=== PATIENT | female | born 1955 | race Caucasian/White ===

== ENCOUNTER 2017-09-22 15:19 | Outpatient (CLI) | payer OTHER ==
--- NOTE | 2017-09-22 19:15 | MRI ---
BRAIN MRI WITH AND WITHOUT CONTRAST: HISTORY: Diagnosed with multiple sclerosis six years ago. Worsening symptoms. COMPARISON: None. TECHNIQUE: A brain MRI is performed with and without intravenous Gadolinium administration. Multisequential, mu ltiplanar imaging is performed. FINDINGS: No hemorrhage on the axial gradient echo sequence. No parenchymal mass, mass effect, or midline shift. Brain volume is age appropriate. Cortical smith white matter differentiation is preserved. Ventricles and sulci are patent and symmetric. The calvarium has a normal T1 marrow signal intensity. Midline brain parenchymal structures are unre markable. Central arterial flow voids are maintained. Absent restricted diffusion. There are scattered T2 and FLAIR white matter hyperintensities. Some of these white matter hyperinte nsities have an orientation perpendicular to the ventricular system. The possibility of demyelinatin g plaques is raised. There is no associated restricted diffusion or enhancement to suggest active de myelination. There is mucosal disease of the left maxillary sinus. No pathologic enhancement of the brain parenchyma. IMPRESSION: 1. No pathologic enhancement of the brain parenchyma. 2. T2 and FLAIR white matter hyperintensities, which are presumed to be due to demyelinating plaques . There is no evidence of restricted diffusion or enhancement to suggest active demyelination. POS: [facility]
== END 2017-09-22 15:20 | disposition home or self-care (01) ==
LOC: SCSMRI 15:19
PROVIDERS: ATTEND Psychiatry & Neurology Neurology
DX: G35 Multiple sclerosis (principal); R90.82 White matter disease, unspecified
CPT/HCPCS: 70553

== ENCOUNTER 2018-08-14 07:38 | Outpatient (CLI) | payer OTHER ==
[2018-08-14] MEDS ORDERED: Iopamidol 370 76% 100 ML VIAL ONE (09:00)
--- NOTE | 2018-08-14 10:16 | CT ---
CHEST CT WITH CONTRAST: Indication: Pulmonary nodule. Comparison: None. FINDINGS: There is 6-7 mm round noncalcified pulmonary nodule involving the posterolateral right lower lobe, in feriorly. Additional scattered, punctate parenchymal nodularity is seen within the lungs, bilaterally . There are a few scattered nonspecific ground glass opacities as well as mild subpleural nodularity . There is no evidence of pleural effusion or pneumothorax. Vascular disease is present. Thoracic aor ta is non-aneurysmal. No pathologically enlarged lymph nodes of the chest are seen. Imaged upper abdo men reveals no acute findings. The regional skeletal structures are intact. IMPRESSION: 6-7 mm noncalcified round pulmonary nodule of the right posterolateral lower lobe, inferiorly. Additi onal scattered, punctate nodularity is seen within the lungs, bilaterally. Recommend follow up CT tho rax in three months for close continued follow up as the finding is too small to percutaneous biopsy and is below the threshold for PET resolution at this time. Code T POS: [facility]
== END 2018-08-14 07:39 | disposition home or self-care (01) ==
LOC: SCSCT 07:38
PROVIDERS: ATTEND Family Medicine
DX: R91.1 Solitary pulmonary nodule (principal)
CPT/HCPCS: 71260

== ENCOUNTER 2019-08-08 11:54 | Outpatient (CLI) | payer OTHER ==
--- NOTE | 2019-08-12 14:18 | CT ---
LOW DOSE CT SCAN OF CHEST FOR LUNG CANCER SCREENING WITHOUT IV CONTRAST: Date: 08/08/19 HISTORY: Nicotine dependence. Current smoker with 47 year less than a pack a day smoking history. COMPARISON: 08/14/18. FINDINGS: The approximately 8 mm noncalcified solid pulmonary nodule involving the posterolateral right lower l obe inferiorly is stable. The 4 mm solid parenchymal nodule in the posterior aspect of the right uppe r lobe is also stable. The 3 mm solid parenchymal nodule in the upper aspect of the right lower lobe is stable. Scarring in the lung apices in the lateral segment of the lingula is again seen. No pleural or pericardial effusions are identified. There are vascular calcifications without evidenc e of aneurysmal dilatation of the thoracic aorta. IMPRESSION: Lung-RADS 4A - Suspicious finding. RECOMMENDATION: Further evaluation with PET/CT is recommended. CODE T. POS: [facility]
== END 2019-08-08 11:55 | disposition home or self-care (01) ==
LOC: CT 11:54
PROVIDERS: ATTEND Family Medicine
DX: F17.210 Nicotine dependence, cigarettes, uncomplicated (principal)
CPT/HCPCS: G0297